=== PATIENT | male | born 1950 | race Caucasian/White ===

== ENCOUNTER 2016-09-05 19:06 | Emergency (ER) | payer BC, OTHER ==
--- NOTE | 2016-09-05 19:17 | PDOC ---
History of Present Illness - General Chief Complaint: Pain Stated Complaint: MY FEET HURT Time Seen by Provider: 09/05/16 19:15 - History of Present Illness Initial Comments: This 66y.o. man hx of Type2 DM is brought in to ER by Ania SCOTT for evaluation. Patient is homeless and had been living at the [facility] in [place]. He was found walking on street (with his belongings in a shopping carriage); patient states that he no longer wants to live at the [facility]. He was walking to [place] so that he could stay at "[facility]" homeless nursing home which he prefers to the [facility]. He admits to mild bilateral foot pain , especially with walking. No recent injury/open sores. The patient otherwise has no complaints. He has a physician in [place] whom he sees luzmaria 3-4 months. He has been taking his medications as prescribed Past History - Past Medical History Allergies/Adverse Reactions: Allergies Allergy/AdvReac Type Severity Reaction Status Date / Time No Known Allergies Allergy Verified 09/05/16 19:21 Home Medications: Ambulatory Orders Carvedilol 6.25 mg PO BID 03/22/14 Insulin (Levemir) [Levemir Flexpen -] 50 units SQ HS 03/22/14 Lisinopril [Prinivil -] 30 mg PO DAILY 03/22/14 Lovastatin 40 mg PO DAILY 03/22/14 Metformin HCl [Glucophage] 1,000 mg PO BID 03/22/14 Sitagliptin Phosphate [Januvia] 50 mg PO DAILY 09/05/16 Anemia: No Asthma: No Cancer: No Cardiac Disorders: No CVA: No COPD: No CHF: No Dementia: No Diabetes: Yes (5-6 YEARS) GI Disorders: No Disorders: No HTN: Yes Hypercholesterolemia: Yes Liver Disease: No Seizures: No Thyroid Disease: No - Surgical History Abdominal Surgery: (UMBILICAL HERNIA REPAIR) Appendectomy: No Cardiac Surgery: No Cholecystectomy: No Lung Surgery: No Neurologic Surgery: No Orthopedic Surgery: No - Psycho/Social/Smoking Cessation Hx Anxiety: No Suicidal Ideation: No Smoking History: Former smoker Have you smoked in the past 12 months: No If you are a former smoker, when did you quit?: 10 YRS AGO Hx Alcohol Use: No Drug/Substance Use Hx: No Substance Use Type: None Hx Substance Use Treatment: No Review of Systems - Review of Systems Able to Perform ROS?: Yes Comments:: 12 point review of systems is negative except for what is noted in the history of present illness *Physical Exam - Physical Exam Comments: GENERAL: The patient is awake, alert, and fully oriented HEAD: Normal with no signs of trauma. EYES: Pupils equal, round and reactive to light, extraocular movements intact, sclera anicteric, conjunctiva clear with no pallor. ENT: moist mucous membranes. Ears normal, nares patent, oropharynx clear without exudates. NECK: Normal range of motion, supple without lymphadenopathy, JVD, or masses. LUNGS: Breath sounds equal, clear to auscultation bilaterally. No wheeze/ crackles HEART: Regular rate and rhythm, normal S1 and S2 without murmur or rub. ABDOMEN: Soft/nontender/nondistended. BS wnl. No guarding or rebound. No palpable masses. No hepatosplenomegaly. EXTREMITIES: Normal range of motion, no edema. No clubbing or cyanosis. No cords, erythema, or tenderness. NEUROLOGICAL: Cranial nerves II through XII grossly intact. Normal speech, normal gait. PSYCH: Normal mood, normal affect. SKIN: Warm, Dry, normal turgor, no rashes or lesions noted. Medical Decision Making - Medical Decision Making [facility] called. The patient can stay there tonight if he wants. The patient has been given cab fare and car service called. Patient proceeded to the [facility] in [place] without new complaints. *DC/Admit/Observation/Transfer Diagnosis at time of Disposition: Diabetes mellitus Qualifiers: Diabetes mellitus type: type 2 Diabetes mellitus complication status: without complication - Discharge Dispostion Disposition: HOME Condition at time of disposition: Stable - Patient Instructions Printed Discharge Instructions: DI for Diabetes Type 2 Additional Instructions: continue medications as prescribed followup with your general doctor within 2 weeks return to ER if you have severe pain/shortness of breath
[2016-09-05 19:34] VITALS: BP 143/98; PULSE 100; TEMP 97.7; BMI 33.4
== END 2016-09-05 20:10 | disposition home or self-care (01) ==
LOC: FER 19:06
DX: E11.9 Type 2 diabetes mellitus without complications (principal); Z59.0 Homelessness; Z87.891 Personal history of nicotine dependence; Z79.4 Long term (current) use of insulin; E78.00 Pure hypercholesterolemia, unspecified
CPT/HCPCS: 99281-25